=== PATIENT | female | born 1980 | race African-American/Black ===

== ENCOUNTER 2018-03-08 09:27 | Emergency (ER) | payer SELFPAY ==
--- NOTE | 2018-03-08 10:50 | RAD ---
THREE VIEWS LEFT ANKLE: Date: 03-08-18 History: Left foot and ankle pain. Left foot swelling that started yesterday. FINDINGS: Ankle mortise is congruent. There is no fracture or dislocation seen involving the left ankle. There is mild subcutaneous soft tissue swelling seen in the medial and anterior aspect of the left ankle. IMPRESSION: Subcutaneous soft tissue swelling without evidence of an acute osseous abnormality. POS: [facility]
--- NOTE | 2018-03-08 10:51 | RAD ---
LEFT FOOT THREE VIEWS: 03/08/2018 HISTORY: Left foot pain and swelling that started yesterday. FINDINGS: The Lisfranc joint is normally aligned. There is no fracture or dislocation. Minimal midfoot degene rative changes are present and similar to the study on 01/31/2017. IMPRESSION: No acute osseous abnormality. POS: [facility]
== END 2018-03-08 10:55 | disposition home or self-care (01) ==
LOC: ERS 09:27
DX: S90.32XA Contusion of left foot, initial encounter (principal); W18.30XA Fall on same level, unspecified, initial encounter; F17.210 Nicotine dependence, cigarettes, uncomplicated

== ENCOUNTER 2018-07-20 11:39 | Emergency (ER) | payer SELFPAY | END 2018-07-20 13:17 | disposition home or self-care (01) | LOC: ERS 11:39 | DX: R09.81 Nasal congestion (principal) | CPT/HCPCS: 87804; 99283 ==

== ENCOUNTER 2018-09-25 10:16 | Emergency (ER) | payer SELFPAY ==
--- NOTE | 2018-09-25 11:47 | RAD ---
RADIOGRAPH CHEST 2 VIEWS: HISTORY: 38-year-old female with cough, fever, chest congestion and wheezing. FINDINGS: There is no air space density, pulmonary edema, pleural effusion, or pneumothorax. IMPRESSION: No acute pulmonary findings. arlene POS: [facility]
== END 2018-09-25 11:35 | disposition home or self-care (01) ==
LOC: ERS 10:16
DX: J20.9 Acute bronchitis, unspecified (principal)
CPT/HCPCS: 71046; 94640; J7620

== ENCOUNTER 2019-02-06 11:11 | Emergency (ER) | payer SELFPAY ==
[2019-02-06 13:14] LABS: #Eosinphils 0.2 thou/uL (0.0-0.7); #Lymphocytes 1.3 thou/uL (1.20-3.40); #Monocytes 0.5 thou/uL (0.11-0.59); %Basophils 0.5 % (0.0-1.0); %Eosinophils 3.4 % (0.0-10.0); %Lymphocytes 21.5 % (21.0-51.0); %Monocytes 7.7 % (0.0-10.0); Mean Corpuscular HGB CONC 32.5 g/dL (32.0-36.0); Mean Corpuscular Volume 89.3 fL (78.0-98.0); Mean Platelet Volume 8.9 fL (7.4-10.4); Platelet Count 223 thou/uL (130-400); RBC Distribution Width 12.6 % (11.5-14.5); Red Blood Cell (RBC) Count 4.12 mill/uL (4.20-5.40)
[2019-02-06 13:18] LABS: BHCG - Serum Negative (NEGATIVE); Pregs Control Background? CLEAR/WHITE (CLR/WHITE); Pregs Control Bar Appear? YES (CONTROL BAR)
--- NOTE | 2019-02-06 13:42 | ULT ---
US Pelvic Transvag History: [Vaginal bleeding] Comparison: None. Findings: Real-time grayscale and color evaluation of the pelvis was performed transabdominal and tra nsvaginal approach. The ovaries are not well seen. Endometrial thickness is 1.2 cm. Uterus is enlarged measuring 14.2 x 7.2 x 6.2 cm. Abnormal linear echogenic striations are seen. Junctional zone not well seen. Impression: Enlarged globular uterus with linear echogenic striations suggesting adenomyosis. Adnexa are not well seen.
[2019-02-09 12:06] LABS: Chlamydia by PCR Not Detected (NotDetected); GC by PCR Not Detected (NotDetected)
== END 2019-02-06 14:25 | disposition home or self-care (01) ==
LOC: ERS 11:11
DX: N85.2 Hypertrophy of uterus (principal)
CPT/HCPCS: 36415; 76856; 84702; 84703; 85025; 86900; 86901; 87491; 87591

== ENCOUNTER 2019-10-30 08:14 | Emergency (ER) | payer SELFPAY | END 2019-10-30 09:43 | disposition home or self-care (01) | LOC: ERS 08:14 | DX: H10.9 Unspecified conjunctivitis (principal) | CPT/HCPCS: 99283 ==

== ENCOUNTER 2020-04-11 14:20 | Emergency (ER) | payer OTHER, SELFPAY ==
--- NOTE | 2020-04-11 16:31 | RAD ---
SINGLE VIEW OF THE CHEST: Comparison: 12-13-08 History: Cough, shortness of breath, chest pain for two days. FINDINGS: Single view of the chest shows a normal sized cardiomediastinal silhouette. There is no evidence of c onsolidation, mass, or pleural effusion. The bones are unremarkable. IMPRESSION: No evidence of acute cardiopulmonary disease. POS: [facility]
== END 2020-04-11 16:32 | disposition home or self-care (01) ==
LOC: ERS 14:20
DX: R05 Cough (principal); R06.02 Shortness of breath; Z20.828 Contact with and (suspected) exposure to other viral communicable diseases
CPT/HCPCS: 71045; 87635; 93005; U0003